=== PATIENT | female | born 1935 | race Caucasian/White ===

== ENCOUNTER 2024-04-15 09:10 | Outpatient (CLI) | payer OTHER, SELFPAY | END 2024-04-15 09:11 | disposition home or self-care (01) | PROVIDERS: PCP Family Medicine; Visit Provider Physician Assistant Medical | DX: Z00.00 Encounter for general adult medical examination without abnormal findings (principal); Z13.6 Encounter for screening for cardiovascular disorders; Z13.29 Encounter for screening for other suspected endocrine disorder; Z13.9 Encounter for screening, unspecified | CPT/HCPCS: 80053; 80061; 84443 ==